=== PATIENT | female | born 1980 | race Caucasian/White ===

== ENCOUNTER 2017-09-12 18:33 | Emergency (ER) | payer BC ==
[2017-09-12] MEDS ORDERED: Acetaminophen TAB* 325 MG PO ONE (19:21)
--- NOTE | 2017-09-12 20:00 | RAD ---
INDICATION: Positive loss of consciousness after a slip and fall injury COMPARISON: None. TECHNIQUE: Contiguous axial sections of the brain were obtained from the skull base to the vertex without contrast. FINDINGS: The ventricles, cisterns and sulci are within normal limits. The crocker-white matter differentiation is adequately maintained and there is no sulcal effacement. No significant focal abnormality or mass effect is present. There is no evidence for intracranial hemorrhage. No significant focal osseous abnormality is present. Incidental note is made of hyperostosis frontalis internal. No The visualized portion of the paranasal sinuses appear clear. The mastoid air cells are well aerated bilaterally. IMPRESSION: Normal CT of the brain.
[2017-09-12 20:36] VITALS: BP 131/87
--- NOTE | 2017-09-12 20:49 | ED ---
Head Injury - HPI Summary HPI Summary: Patient is a 37-year-old female presenting to the ED after falling and hitting her head this morning. Patient states she slipped on wet grass and some pavement and hit the left side of her head. Endorses loss of consciousness, but notes that this was only for seconds. She states she felt fine all day until about an hour ago when she noticed headache, nausea, and confusion. She also states when a friend of hers called her on the phone she was unable to recognize her voice and now is concerned for memory loss. She is unable to recall what she had for dinner last night. She denies any fevers. Has not been ill recently. There is no cephalohematoma that she can appreciate. No blurry vision, double vision, headache. Nausea one hour ago, which has since resolved. Patient states that she is an alcoholic and has been attempting to wean herself off alcohol small amounts daily. She states "I will quit completely tomorrow" and she continues to go to meetings she states. She denies any SI/HI. - History Of Current Complaint Chief Complaint: EDHeadInjury Stated Complaint: FELL HIT HEAD Time Seen by Provider: 09/12/17 18:48 Hx Obtained From: Patient Mechanism Of Injury: Blunt Trauma Onset/Duration: Started Hours Ago Onset of Pain: Hours Severity Currently: Moderate Severity Initially: Moderate Pain Intensity: 4 Pain Scale Used: 0-10 Numeric Location of Head Injury: Diffuse Location: Diffuse Character: Sharp Aggravating Factor(s): Movement Alleviating Factor(s): Rest Associated Signs And Symptoms: LOC (Time In Secs./Mins/Hrs) - Risk Factors SDH Risk Factor: Alcohol Abuse - Allergies/Home Medications Allergies/Adverse Reactions: Allergies Allergy/AdvReac Type Severity Reaction Status Date / Time mupirocin [From Bactroban] Allergy Hives Verified 09/12/17 18:50 PMH/Surg Hx/FS Hx/Imm Hx Previously Healthy: Yes Endocrine/Hematology History: Denies: Hx Diabetes, Hx Thyroid Disease Cardiovascular History: Denies: Hx Hypertension History: Denies: Hx Kidney Infection, Other Problems/Disorders Psychiatric History: Reports: Hx Anxiety Denies: Hx Depression, Other Psychiatric Issues/Disorders Infectious Disease History: No Infectious Disease History: Denies: Traveled Outside the [place] in Last 30 Days - Social History Occupation: Employed Full-time Lives: With Family Alcohol Use: Daily Alcohol Amount: quitting tomorrow per pt Hx Substance Use: No Substance Use Type: Reports: None Hx Tobacco Use: Yes Smoking Status (MU): Light Every Day Tobacco Smoker Review of Systems Constitutional: Negative Eyes: Negative Cardiovascular: Negative Gastrointestinal: Negative Positive: no symptoms reported, see HPI Neurological: Negative All Other Systems Reviewed And Are Negative: Yes Physical Exam Triage Information Reviewed: Yes Vital Signs On Initial Exam: Initial Vitals Temp Pulse Resp BP Pulse Ox 98.2 F 79 18 123/88 97 09/12/17 18:41 09/12/17 18:41 09/12/17 18:41 09/12/17 18:41 09/12/17 18:41 Vital Signs Reviewed: Yes Appearance: Positive: Well-Appearing, Well-Nourished Skin: Positive: Warm, Skin Color Reflects Adequate Perfusion Head/Face: Positive: Normal Head/Face Inspection Eyes: Positive: EOMI, SPRING, Conjunctiva Clear Neck: Positive: Supple, No Lymphadenopathy Respiratory/Lung Sounds: Positive: Clear to Auscultation, Breath Sounds Present Cardiovascular: Positive: Normal, RRR, Pulses are Symmetrical in both Upper and Lower Extremities Musculoskeletal: Positive: Normal, Strength/ROM Intact Neurological: Positive: Speech Normal Psychiatric: Positive: Affect/Mood Appropriate AVPU Assessment: Alert Diagnostics - Vital Signs Vital Signs Temp Pulse Resp BP Pulse Ox 09/12/17 18:41 98.2 F 79 18 123/88 97 - Laboratory Lab Statement: Any lab studies that have been ordered have been reviewed, and results considered in the medical decision making process. Head Injury Course/Dx Course Of Treatment: Patient is evaluated for head injury. There are no focal neurologic deficits. Patient is appearing well on arrival and on physical exam. Risk factors for SDH include alcohol abuse, so I have advised we obtain a CT. Brain CT is also advised as patient endorses loss of consciousness and nausea. CT brain results show no acute cranial findings. Patient is made aware. She is concerned that she is an alcoholic and is trying to wean herself off of alcohol. I have discussed the side effects of abrupt alcohol cessation and have discussed with her at length about strict return precautions. Likely has a moderate concussion due to her loss of consciousness, nausea and feelings of confusion and memory loss. She is to follow-up with her primary care physician. I am not concerned with seizing activity and did not believe she needs to be admitted for any detox. - Diagnoses Differential Diagnosis/HQI/PQRI: Cerebral Contusion, Concussion With LOC, Concussion Without LOC Provider Diagnoses: Concussion Discharge - Sign-Out/Discharge Documenting (check all that apply): Discharge - Discharge Plan Condition: Stable Disposition: HOME Patient Education Materials: Concussion (ED), Post Concussion Syndrome (ED) Forms: *Work Release Referrals: Edyta Olea MD [Primary Care Provider] - Additional Instructions: Brain rest includes sleeping as much as possible Not focusing on anyone object for a long period of time Decreased amount of reading and writing - Billing Disposition and Condition Condition: STABLE Disposition: HOME
== END 2017-09-12 20:35 | disposition home or self-care (01) ==
LOC: ED 18:33
DX: S06.0X1A Concussion with loss of consciousness of 30 minutes or less, initial encounter (principal); W01.0XXA Fall on same level from slipping, tripping and stumbling without subsequent striking against object, initial encounter; Y92.9 Unspecified place or not applicable; F17.210 Nicotine dependence, cigarettes, uncomplicated
CPT/HCPCS: 70450; 99282; A9270-GY